=== PATIENT | male | born 1955 | race Caucasian/White ===

== ENCOUNTER 2025-05-12 08:37 | Outpatient (CLI) | payer BC, MEDICARE, SELFPAY ==
--- NOTE | ~2025-05-12 | US_ITS ---
EXAMINATION: US art doppler w press TRISTEN LY DATE: 05/12/2025 09:30 INDICATION: Peripheral vascular disease. TECHNIQUE: Segmental pressures and plethysmographic and Doppler waveforms of the brachial and lower extremity arteries were obtained. COMPARISON: None. FINDINGS: Right and left brachial artery pressures of 117 mm Hg and 125 mm Hg, respectively, are concordant (normal difference <= 30 mmHg). The right high-thigh pressure index is 1.14 (normal > 1.2). The right ankle- brachial index (VIJAYA) is 1.15 (normal >= 0.9-1.0). The right great toe-brachial index (TBI) is 1.04 (normal >= 0.65). Arterial Doppler waveforms are at least triphasic from common femoral artery to the ankle. The left high-thigh pressure index is 1.14. The left VIJAYA is 1.17. The left TBI is 0.96. Arterial Doppler waveforms are triphasic from common femoral artery to the ankle. IMPRESSION: 1. No significant arterial occlusive disease. Reviewed, dictated and finalized at location E.
== END 2025-05-12 08:38 | disposition home or self-care (01) ==
LOC: ANHIMG 08:42
PROVIDERS: PCP Internal Medicine; Visit Provider Internal Medicine
DX: I73.9 Peripheral vascular disease, unspecified (principal)
CPT/HCPCS: 93923

== ENCOUNTER 2025-08-02 07:55 | Outpatient (CLI) | payer BC, MEDICARE, SELFPAY ==
--- NOTE | 2025-08-23 13:32 | WPDHOMESLEEP ---
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 The patient admits to having trouble maintaining sleep. He denies snoring loudly. He denies having interruptions in breathing while asleep. He denies choking or gasping at night. He denies having trouble breathing on his back. He denies morning headaches. Does have a dry or sore mouth / throat in the morning. He denies nocturnal heartburn. He denies nocturia. He does have difficulty falling asleep. He denies having difficulty returning to sleep if he wakes up throughout the night. He does use hypnotic or sedative. He denies feeling anxious about sleep. He does feel tired or sleepy during the day. He does feel tired in the morning. He denies having the urge to fall asleep during the day. He denies feeling drowsy while driving. He denies sleep paralysis, cataplexy and hypnagogic/ hypnopompic hallucinations. He denies clenching or grinding his teeth. He denies kicking or jerking his legs excessively. He denies having a restless feeling in his legs. He goes to bed at 11:30 p.m. on work days and at midnight on his days off. It takes him 30 minutes to fall asleep. He gets 6 hours of sleep on work days and 6-1/2 hours of sleep on his days off. His sleep is somewhat restorative on days off. He denies taking any planned naps. He denies dream enactment behavior. He denies sleep walking. He consumes 1-2 cups of caffeinated beverage per day. He consumes 1 alcoholic beverage 1-2 nights per week. He denies tobacco use. He denies exercising on a regular basis. FORMERLY [facility] Past Medical History Medical History (Updated 08/23/25 @ 13:37 by Rosanna Palacio DO) History of stress test Irregular heart rhythm Surgical History Surgical History (Updated 06/01/25 @ 08:29 by Jorge Vo) History of tooth extraction Social History Social History (System 06/01/25 @ 08:29 by Jorge Vo) Smoking status: Never smoker Alcohol intake: current Drinks per week: 6 Substance use: never Lack of Transportation: No Lack of Food: Never True Current Housing: I Have Housing Concerned About Future Housing: No Difficulty Paying Gas/Electric Bills: No Difficulty Paying for Meds: No Currently Unemployed: No Education: Trade/Vocational Certificate Difficulty w/ Childcare or Family Care: No Living arrangements: with family Spiritual care concerns: No Medications Home Medications ?Medication ?Instructions ?Recorded ?Confirmed ?Type atorvastatin 40 mg tablet 40 mg PO DAILY 07/07/22 01/01/25 History lorazepam 0.5 mg tablet 0.5 mg PO DAILY PRN Anxiety 07/07/22 01/01/25 History meloxicam 15 mg tablet 15 mg PO DAILY #90 tabs 09/03/23 01/01/25 Rx Sleep Procedure The sleep study was completed using [employer] a technically adequate device with seven channels: peripheral arterial tone, actigraphy, body position, snore, respiratory movement, pulse oximetry, sleep staging, and heart rate. Prior to using the device, the patient received verbal and written instructions for its application and was provided with the help desk phone number for additional telephonic instruction with 24-hour availability of qualified personnel to answer questions. The study was scored using CMS guidelines. Sleep Architecture The total recording time is 9 hrs, 33 min. The total sleep time is 8 hrs, 41 min. Sleep latency is 6 minutes. REM latency is 129 minutes. The patient had 8 episodes of waking. Sleep architecture shows 7.0% deep sleep, 74.5% light sleep, and (as % Total Sleep Time) showed NREM (Light 74.5%; Deep 7.0%), and a 18.5% stage REM. The patient spent 12.1% of total sleep time in the supine position. Sleep efficiency was 90.92. Respiratory Analysis The overall AHI (pAHI 4%:) is 10.1. The overall AHI (pAHI 3%:) is 16.1. The central AHI is 1.7. The AHI was 16.8 in NREM and 12.4 in REM sleep. The AHI was 20.5 in Supine and 15.5 in Non-supine sleep. Percent of Levar Dill respirations is 0.0. Oximetry Data The oxygen desaturation index (MATILDE 4%:) is 6.0. The mean saturation is 94%, and the lowest saturation is 87%. Time spent with saturation < 88% is 0.2 minutes. Snoring Profile Snoring average intensity is 41 dB. The patient snored above 45 decibels for 25.9 minutes, 5.0% of sleep time. Cardiac Profile The average pulse rate is 51 beats per minutes. The lowest pulse rate is 32 bpm. The highest pulse rate reported is 89 bpm. Atrial fibrillation was not detected. Premature beats occur 0.3 per minute. Assessment and Plan Assessment and Plan (1) ROB (obstructive sleep apnea): Code(s): G47.33 - Obstructive sleep apnea (adult) (pediatric) Status: Acute Assessment and Plan: The patient had an overall AHI of 10.1 with desaturation down to 87%. This is consistent with mild sleep apnea. Due to the patient's coronary artery disease, he qualifies for treatment. I recommend that the patient be prescribed AutoPAP 5-15 cm H2O, CPAP mask/filters/tubing and heated humidity. A mandibular advancement device is also an acceptable treatment option. This should be used with all episodes of sleep.? Compliance should be reviewed within 31-90 days of starting therapy for usage greater than 4 hours per night greater than 70% of the nights. The patient should be asked about symptoms such as?excessive daytime sleepiness, quality of sleep, decreased nocturia, increased?mental functioning such as memory, mood, and concentration. Data The data obtained during this sleep study is adequate for interpretation. Certification This sleep study has been reviewed by a board certified sleep medicine physician.
[2025-08-23 13:33] VITALS: BMI 26.8
== END 2025-08-03 13:11 | disposition home or self-care (01) ==
PROVIDERS: PCP Internal Medicine; Visit Provider Nurse Practitioner Family
DX: G47.33 Obstructive sleep apnea (adult) (pediatric) (principal)
CPT/HCPCS: 95800